=== PATIENT | female | born 1995 | race Caucasian/White ===

== ENCOUNTER → 2019-12-11 15:59 | Outpatient (CLI) | payer OTHER | END | disposition home or self-care (01) | LOC: LAB 15:59 | PROVIDERS: ATTEND Internal Medicine | DX: Z20.2 Contact with and (suspected) exposure to infections with a predominantly sexual mode of transmission (principal) ==

== ENCOUNTER → 2019-12-27 08:27 | Outpatient (CLI) | payer OTHER | END | disposition home or self-care (01) | LOC: LAB 08:27 | PROVIDERS: ATTEND Obstetrics & Gynecology | DX: Z34.80 Encounter for supervision of other normal pregnancy, unspecified trimester (principal) ==

== ENCOUNTER 2020-01-17 06:00 | Outpatient (CLI) | payer OTHER | END 2020-01-17 15:48 | disposition home or self-care (01) | LOC: PPH VACUNA 06:00 | DX: Z23 Encounter for immunization (principal) ==

== ENCOUNTER 2020-03-03 11:21 | Outpatient (CLI) | payer OTHER | END 2020-03-03 11:35 | disposition home or self-care (01) | LOC: LAB 11:21 | PROVIDERS: ATTEND Obstetrics & Gynecology | DX: O09.72 Supervision of high risk pregnancy due to social problems, second trimester (principal) ==

== ENCOUNTER 2020-03-24 11:15 | Outpatient (CLI) | payer OTHER | END 2020-03-24 11:17 | disposition home or self-care (01) | LOC: NUCLEAR 11:15 | PROVIDERS: ATTEND Internal Medicine | DX: R00.2 Palpitations (principal) ==

== ENCOUNTER → 2020-04-11 07:38 | Outpatient (CLI) | payer OTHER | END | disposition home or self-care (01) | LOC: LAB 07:38 | PROVIDERS: ATTEND Obstetrics & Gynecology Maternal & Fetal Medicine | DX: Z34.92 Encounter for supervision of normal pregnancy, unspecified, second trimester (principal) ==

== ENCOUNTER 2020-06-04 16:00 | Outpatient (CLI) | payer OTHER | END 2020-06-04 17:37 | disposition home or self-care (01) | LOC: LAB 16:00 | DX: Z20.828 Contact with and (suspected) exposure to other viral communicable diseases (principal) ==

== ENCOUNTER → 2020-06-25 14:17 | Outpatient (CLI) | payer OTHER | END | disposition home or self-care (01) | LOC: LAB 14:17 | PROVIDERS: ATTEND Obstetrics & Gynecology Maternal & Fetal Medicine | DX: Z34.83 Encounter for supervision of other normal pregnancy, third trimester (principal) ==

== ENCOUNTER 2020-07-15 14:15 | Inpatient (IN) | payer OTHER ==
[~2020-07-15] VITALS: Ht 165.1 cm; Wt 68.0 kg
[2020-07-22] MEDS ORDERED: PRENATAL TABLE1 EAC1 PO (03:59)
== END 2020-07-24 12:27 | disposition home or self-care (01) | DRG 807 ==
LOC: OB/GYN 07-20 14:15 → LDR 07-22 03:52 → OB/GYN 07-22 17:00
PROVIDERS: ADMIT Obstetrics & Gynecology; ATTEND Obstetrics & Gynecology
PROC: 10E0XZZ Delivery of Products of Conception, External Approach (ICD-10-PCS; principal; 2020-07-22)
PROC: 3E033VJ Introduction of Other Hormone into Peripheral Vein, Percutaneous Approach (ICD-10-PCS; 2020-07-22)
PROC: 4A1HXFZ Monitoring of Products of Conception, Cardiac Rhythm, External Approach (ICD-10-PCS; 2020-07-22)
DX: O48.0 Post-term pregnancy (principal); Z37.0 Single live birth; Z3A.40 40 weeks gestation of pregnancy; Z20.822 Contact with and (suspected) exposure to COVID-19

== ENCOUNTER 2020-07-16 11:11 | Outpatient (CLI) | payer OTHER | END 2020-07-16 11:49 | disposition home or self-care (01) | LOC: NST 11:11 | PROVIDERS: ATTEND Obstetrics & Gynecology | DX: Z34.83 Encounter for supervision of other normal pregnancy, third trimester (principal) ==

== ENCOUNTER 2020-07-21 10:34 | Outpatient (CLI) | payer OTHER ==
[2020-07-22] MEDS ORDERED: PRENATAL TABLE1 EAC1 PO (03:59)
== END 2020-07-21 11:14 | disposition home or self-care (01) ==
LOC: NST 10:34
PROVIDERS: ATTEND Obstetrics & Gynecology
DX: Z34.03 Encounter for supervision of normal first pregnancy, third trimester (principal)

== ENCOUNTER 2020-09-25 09:14 | Outpatient (CLI) | payer OTHER ==
[~2020-09-25 09:14] MED LIST: PRENATAL TABLE1 EAC1 PO
== END 2020-09-25 09:22 | disposition home or self-care (01) ==
LOC: SONOGRAMA 09:14
PROVIDERS: ATTEND Surgery
DX: N60.11 Diffuse cystic mastopathy of right breast (principal); N60.12 Diffuse cystic mastopathy of left breast

== ENCOUNTER 2020-09-25 15:18 | Outpatient (CLI) | payer OTHER | END 2020-09-25 15:23 | disposition home or self-care (01) | LOC: LAB 15:18 | DX: N61.1 Abscess of the breast and nipple (principal) ==

== ENCOUNTER 2021-02-09 20:41 | Emergency (ER) | payer OTHER ==
[~2021-02-09] VITALS: Ht 165.1 cm; Wt 53.5 kg
== END 2021-02-09 22:50 | disposition home or self-care (01) ==
LOC: ER 20:41
DX: M54.59 Other low back pain (principal)

== ENCOUNTER 2022-02-07 13:16 | Outpatient (CLI) | payer OTHER | END 2022-02-07 13:26 | disposition home or self-care (01) | LOC: PPH VACUNA 13:16 | PROVIDERS: ATTEND Emergency Medicine Pediatric Emergency Medicine | DX: Z23 Encounter for immunization (principal) ==

== ENCOUNTER 2022-07-20 10:08 | Outpatient (CLI) | payer OTHER | END 2022-07-20 10:14 | disposition home or self-care (01) | LOC: LAB 10:08 | PROVIDERS: ATTEND Obstetrics & Gynecology | DX: N39.0 Urinary tract infection, site not specified (principal); R22.1 Localized swelling, mass and lump, neck; E55.9 Vitamin D deficiency, unspecified; E03.9 Hypothyroidism, unspecified ==

== ENCOUNTER 2023-01-20 10:22 | Outpatient (CLI) | payer OTHER | END 2023-01-20 10:24 | disposition home or self-care (01) | LOC: SONOGRAMA 10:22 | PROVIDERS: ATTEND Obstetrics & Gynecology | DX: N63.12 Unspecified lump in the right breast, upper inner quadrant (principal); N63.21 Unspecified lump in the left breast, upper outer quadrant ==

== ENCOUNTER 2023-03-27 10:26 | Emergency (ER) | payer OTHER ==
[~2023-03-27] VITALS: Ht 165.1 cm; Wt 56.7 kg
[2023-03-27 12:49] LABS: HEMATOCRIT 41.8 % (36.0-45.00); HEMOGLOBIN 13.8 g/dL (12.0-15.00); MEAN CELL VOLUME 89.2 fL (80.00-100.00); MEAN CORPUSCULAR HEMOGLOBIN 29.4 pg (27.00-32.0); PLATELET COUNT 299 K/uL (150-450); RED BLOOD COUNT 4.68 M/uL (4.00-6.00); RED CELL DISTRIBUTION WIDTH 13.3 % (11.5-14.5)
[2023-03-27 13:05] LABS: CALCIUM 9.2 mg/dL (8.5-10.1); CREATININE SERUM 0.74 mg/dL (0.55-1.02); GFR 93.45; POTASSIUM 3.79 mEq/L (3.5-5.1)
[2023-03-27 14:16] LABS: URINE APPEARANCE Clear; URINE BILIRRUBIN Negative (NEGATIVE); URINE BLOOD Trace; URINE COLOR Yellow; URINE GLUCOSE Negative (NEGATIVE); URINE LEUKOCYTE Negative; URINE NITRATE Negative; URINE PROTEIN Negative (NEGATIVE); URINE UROBILINOGEN 0.2 E.U./dl
[2023-03-27 14:21] LABS: URINE BACTERIA 144.8 uL (0.0-1933); URINE EPITHELIAL CELLS 5.3 uL (0.0-38.8); URINE RBC 8.6 uL (0.0-20.8); URINE WBC 4.6 uL (0.0-23.2)
[2023-03-27] MEDS ORDERED: ZOFRAN8 MG PO (14:55)
[2023-03-27] MEDS ORDERED: PEPCID AC20 MG PO (14:55)
== END 2023-03-27 16:05 | disposition home or self-care (01) ==
LOC: ER 10:26
PROVIDERS: General Practice
DX: K52.89 Other specified noninfective gastroenteritis and colitis (principal); R10.9 Unspecified abdominal pain